=== PATIENT | male | born 1990 | race Two or more races ===

== ENCOUNTER 2017-10-07 00:08 | Inpatient (IN) | payer BC, OTHER ==
[~2017-10-07] VITALS: Ht 185.4 cm; Wt 106.6 kg
[2017-10-07] MEDS ORDERED: SODIUM CHLORIDE 0.9% 1,000 ML IV ONE (03:53)
[2017-10-07] MEDS ORDERED: KETOROLAC 30MG/ML VIAL IV STA (03:53)
[2017-10-07] MEDS ORDERED: ONDANSETRON HCL 4MG/2ML VIAL IV STA (03:53)
[2017-10-07 04:12] LABS: BASOPHILS % 0.5 % (0.0-2.0); EOSINOPHILS % 0.1 % (0.0-5.0); HEMATOCRIT. 50.7 % (42.0-52.0); HEMOGLOBIN. 17.5 g/dL (14.0-18.0); LYMPHOCYTES % 14.2 % (20.0-50.0); MEAN CORPUSCULAR HEMOGLOBIN 30.7 pg (28.0-32.0); MEAN CORPUSCULAR VOLUME 88.8 fL (80.0-94.0); MEAN PLATELET VOLUME 8.2 fl (7.4-10.4); MONOCYTES % 3.7 % (2.0-8.0); NEUTROPHILS % 81.5 % (40.0-76.0); PLATELET 181 x1000/uL (130-400); RED BLOOD CELL COUNT 5.71 mill/uL (4.7-6.1)
[2017-10-07 04:17] LABS: CHLORIDE 100 mEq/L (98-107)
[2017-10-07 04:18] LABS: INR 1.1; PROTHROMBIN TIME 11.4 sec (9.4-11.6)
[2017-10-07 04:26] LABS: CLARITY URINE CLEAR (CLEAR); COLOR URINE YELLOW (YELLOW); KETONES URINE NEGATIVE (NEGATIVE); LEUKOCYTE ESTERASE URINE NEGATIVE (NEGATIVE); NITRITE URINE NEGATIVE (NEGATIVE); OCCULT BLOOD URINE NEGATIVE (NEGATIVE); PROTEIN URINE NEGATIVE (NEGATIVE); SPECIFIC GRAVITY URINE 1.014 (1.005-1.030); UROBILINOGEN URINE 0.2 E.U./dL (0.2-1.0)
[2017-10-07 09:28] VITALS: BP 133/74
[2017-10-07 09:30] VITALS: BP 133/74
[2017-10-07] MEDS ORDERED: DIPHENHYDRAMINE 50MG/ML VIAL IV PRN (10:15)
[2017-10-07] MEDS ORDERED: CLONIDINE 0.1MG TABLET PO PRN (10:15)
[2017-10-07] MEDS ORDERED: LORAZEPAM 2MG/ML CPJ IV PRN (10:15)
[2017-10-07] MEDS ORDERED: ACETAMINOPHEN 650MG SUPP PR PRN (10:15)
[2017-10-07] MEDS ORDERED: KETOROLAC 15MG/ML VIAL IV PRN (10:15)
[2017-10-07] MEDS ORDERED: ONDANSETRON HCL 4MG/2ML VIAL IV PRN (10:15)
[2017-10-07] MEDS: DEXT 5%/0.45% NACL KCL 20MEQ/L 1,000 ML IV SCH ×2 (11:53→21:16)
[2017-10-07 12:00] VITALS: BP 123/81
[2017-10-07 16:00] VITALS: BP 129/84
[2017-10-07 20:00] VITALS: BP 109/56
[2017-10-08] VITALS: BP 127/79
[2017-10-08 04:00] VITALS: BP 112/76
[2017-10-08] MEDS: DEXT 5%/0.45% NACL KCL 20MEQ/L 1,000 ML IV SCH ×2 (04:04→08:34)
[2017-10-08 08:00] VITALS: BP 102/60
[2017-10-08 08:02] LABS: BASOPHILS % 0.4 % (0.0-2.0); EOSINOPHILS % 2.2 % (0.0-5.0); HEMATOCRIT. 44.3 % (42.0-52.0); HEMOGLOBIN. 15.3 g/dL (14.0-18.0); LYMPHOCYTES % 40.9 % (20.0-50.0); MEAN CORPUSCULAR HEMOGLOBIN 30.9 pg (28.0-32.0); MEAN CORPUSCULAR VOLUME 89.3 fL (80.0-94.0); MONOCYTES % 8.9 % (2.0-8.0); NEUTROPHILS % 47.6 % (40.0-76.0); PLATELET 157 x1000/uL (130-400); RED BLOOD CELL COUNT 4.96 mill/uL (4.7-6.1); RED CELL DISTRIBUTION WIDTH 11.7 % (11.6-14.6)
[2017-10-08 08:40] LABS: CHLORIDE 107 mEq/L (98-107)
[2017-10-08 08:50] LABS: PHOSPHORUS 2.7 mg/dL (2.5-4.9)
[2017-10-08] MEDS ORDERED: PANTOPRAZOLE SODIUM 40 MG/VIAL IV SCH (09:00)
[2017-10-08 10:44] VITALS: BP 102/60
[2017-10-08 12:00] VITALS: BP 100/73
== END 2017-10-08 15:30 | disposition home or self-care (01) | DRG 392 ==
LOC: ER 00:08 → 6EST 06:00 → EDBEDREQTM 06:06 → EDBEDREQ 06:06 → ENRESERV 07:31
PROVIDERS: ADMIT Internal Medicine; ATTEND Internal Medicine
DX: K52.9 Noninfective gastroenteritis and colitis, unspecified (principal); K56.600 Partial intestinal obstruction, unspecified as to cause; Z82.49 Family history of ischemic heart disease and other diseases of the circulatory system; Z83.3 Family history of diabetes mellitus
CPT/HCPCS: 36415; 74018; 74176; 80053; 81003; 83690; 83735; 84100; 85025; 85610; 96361; 96374; 96375; 99285; C1893; C9113; J1885; J2405; J7030